=== PATIENT | male | born 1990 | race Caucasian/White ===

== ENCOUNTER 2017-08-20 00:30 | Emergency (ER) | payer BC ==
[2017-08-20] MEDS ORDERED: CEFTRIAXONE/SWI 1gm 1 GM/10 ML SYR ONE (00:51)
[2017-08-20] MEDS ORDERED: NA CHLORIDE 0.9% 1,000 ML ONE (00:51)
[2017-08-20] MEDS ORDERED: AZITHROMYCIN 250 MG TAB ONE (00:52)
[2017-08-20 01:29] LABS: Absolute Lymphocytes (CBC) 1.6 K/uL (0.7-4.9); Absolute Monocytes 1.3 K/uL (0.1-1.3); Absolute Neutrophil 12.1 K/uL (1.8-8.0); Basophils % 0.3 % (0-1.3); Eosinophils % 2.3 % (0-4.4); Hematocrit 43.7 % (39.6-49.0); Lymphocytes % 10.3 % (15.3-44.8); MCV 84.3 fL (80-100); MPV 8.9 fL (7.6-11.3); Monocytes % 8.3 % (3.3-12.3); RBC Red Blood Cell Count 5.18 M/uL (4.33-5.43)
[2017-08-20 01:47] LABS: Bicarbonate 28 mEq/L (21-31); Glucose Level 110 mg/dL (65-120); Potassium 3.8 mEq/L (3.6-5.0); Sodium Level 138 mEq/L (135-145)
[2017-08-20 01:51] LABS: CKMB Creatine Kinase MB 1.2 ng/ml (0.3-4.0)
[2017-08-20 01:53] LABS: ALT/SGPT 31 IU/L (10-60); AST/SGOT 24 IU/L (10-42); Albumin 4.1 g/dL (3.2-5.5); Alkaline Phosphatase 65 IU/L (42-121); BUN Blood Urea Nitrogen 13 mg/dL (6-20); Bilirubin Direct 0.1 mg/dL (0-0.2); Bilirubin Total 0.8 mg/dL (0.3-1.2); Creatine Phosphokinase 96 IU/L (22-269); Magnesium 1.8 mg/dL (1.8-2.5); Protein, Total 7.7 g/dL (6.0-8.3)
--- NOTE | 2017-08-20 02:14 | ER ---
Nurse's Notes [facility] Name: Josesito Lopez Age: 27 yrs Sex: Male : 1990 Arrival Date: 08/20/2017 Time: 00:30 Bed 6 Private MD: Diagnosis: Pneumonia due to other specified bacteria Presentation: 08/20 00:39 Presenting complaint: Patient states: I've had chest congestion symptoms since Monday tl2 and it's gotten worse. It feels like my lungs are heavy and it's just a burning pain all the time. I feel short of breath even at rest. Transition of care: patient was not received from another setting of care. Onset of symptoms was August 15, 2017. Initial Sepsis Screen: Does the patient meet any 2 criteria? HR > 90 bpm. No. Patient's initial sepsis screen is negative. Does the patient have a suspected source of infection? No. Patient's initial sepsis screen is negative. Care prior to arrival: None. 00:39 Method Of Arrival: Ambulatory tl2 00:39 Acuity: KEVIN 3 tl2 Triage Assessment: 00:42 General: Appears in no apparent distress. uncomfortable, Behavior is calm, cooperative, tl2 appropriate for age. Pain: Complains of pain in chest wall Pain does not radiate. Pain currently is 4 out of 10 on a pain scale. Quality of pain is described as dull. Neuro: Level of Consciousness is awake, alert, obeys commands, Oriented to person, place, time, situation. Cardiovascular: Chest pain is described as mild, quality is burning, is located in chest wall. Respiratory: Airway is patent Respiratory effort is even, unlabored, Respiratory pattern is regular, symmetrical. GI: No signs and/or symptoms were reported involving the gastrointestinal system. : No signs and/or symptoms were reported regarding the genitourinary system. Derm: Skin is pink, warm \T\ dry. Historical: - Allergies: 00:42 No Known Allergies; tl2 - Home Meds: 00:42 phentermine oral oral [Active]; tl2 - PMHx: 00:42 None; tl2 - PSHx: 00:42 None; tl2 - Immunization history:: Adult Immunizations up to date. - Social history:: Smoking status: Patient uses tobacco products, smokes one pack cigarettes per day. Patient/guardian denies using alcohol, street drugs, The patient lives with family. - Family history:: not pertinent. Screenin:48 Abuse screen: Denies threats or abuse. Nutritional screening: No deficits noted. tl2 Tuberculosis screening: No symptoms or risk factors identified. Fall Risk None identified. Assessment: 01:21 General: see triage assessment. tl2 01:22 Reassessment: Patient appears in no apparent distress at this time. No changes from tl2 previously documented assessment. Patient and/or family updated on plan of care and expected duration. Pain level reassessed. Patient is alert, oriented x 3, equal unlabored respirations, skin warm/dry/pink. 02:13 Reassessment: Patient appears in no apparent distress at this time. Patient and/or tl2 family updated on plan of care and expected duration. Pain level reassessed. Patient is alert, oriented x 3, equal unlabored respirations, skin warm/dry/pink. Awaiting further orders. 02:44 Pain: Pain began 2 hours ago. tl2 02:45 Reassessment:. tl2 02:45 Reassessment: DC Instructions given to patient. Patient understand the POC and to ao follow up with PCP. Patient agrees with antibiotic regime. Vital Signs: 00:42 BP 152 / 93; Pulse 109; Resp 20; Temp 99.3(O); Pulse Ox 98% on R/A; Weight 117.93 kg; tl2 Height 5 ft. 8 in. (172.72 cm); Pain 4/10; 01:22 BP 122 / 62; Pulse 77; Resp 18; Pulse Ox 96% on R/A; tl2 02:13 BP 139 / 73; Pulse 82; Resp 18; Pulse Ox 93% on R/A; tl2 02:46 BP 125 / 80; Pulse 78; Resp 18; Pulse Ox 96% on R/A; ao 00:42 Body Mass Index 39.53 (117.93 kg, 172.72 cm) tl2 ED Course: 00:30 Patient arrived in ED. ds1 00:39 Jamarcus Boss MD is Attending Physician. ma2 00:39 Liz Mcfarlane RN is Primary Nurse. tl2 00:41 Triage completed. tl2 00:42 Arm band placed on left wrist. EKG completed in triage. Results shown to MD. tl2 00:48 Patient has correct armband on for positive identification. Bed in low position. Call tl2 light in reach. Side rails up X 1. Adult w/ patient. conveyor monitor on. Pulse ox on. NIBP on. 00:48 Patient maintains SpO2 saturation greater than 95% on room air. tl2 00:50 Inserted saline lock: 20 gauge in right antecubital area, using aseptic technique. eb Blood collected. 01:01 X-ray completed. Portable x-ray completed in exam room. Patient tolerated procedure 1 well. 01:03 XRAY Chest (1 view) In Process Unspecified. EDMS 02:44 No provider procedures requiring assistance completed. IV discontinued, intact, tl2 bleeding controlled, No redness/swelling at site. Pressure dressing applied. Administered Medications: 00:56 Drug: NS 0.9% 1000 ml Route: IV; Rate: 1 bolus; Site: right antecubital; tl2 00:56 Drug: Rocephin 1 grams Route: IV; Rate: bolus; Site: right antecubital; tl2 00:56 Drug: AZITHromycin 500 mg Route: PO; tl2 Outcome: 02:14 Discharge ordered by . ma2 02:44 Discharged to home ambulatory. tl2 02:44 Condition: stable 02:44 Discharge instructions given to patient, Instructed on discharge instructions, follow up and referral plans. Demonstrated understanding of instructions, follow-up care, medications, Prescriptions given X 3. 02:47 Patient left the ED. ao 11:58 Instructed on attempted to call pt at home, no answer, left voice mail. Radiologist radha requests pt be seen in ER for CT of chest Signatures: Dispatcher [employer] EDIA Darshana López 1 Kimberly Coleman 1 Zahira Liz, JOS ARGUELLO iw Coleman Almendarez RN RN ao Knox, Taylor, RN RN tl2 Jamarcus Boss MD MD ma2 Botello, Elizabeth eb
--- NOTE | 2017-08-20 02:14 | EDPHYS ---
Physician Documentation [facility] Name: Josesito Lopez Age: 27 yrs Sex: Male : 1990 Arrival Date: 08/20/2017 Time: 00:30 Bed 6 Private MD: ED Physician Jamarcus Boss HPI: 08/20 00:45 This 27 yrs old Male presents to ER via Ambulatory with complaints of Chest ma2 Pain, Shortness Of Breath, Congestion. 00:45 The patient or guardian reports chest pain that is located primarily in the right sided ma2 constant x 2 days worse with deep breath and cough. Severity of pain: At its worst the pain was moderate. The patient has not experienced similar symptoms in the past. Historical: - Allergies: 00:42 No Known Allergies; tl2 - Home Meds: 00:42 phentermine oral oral [Active]; tl2 - PMHx: 00:42 None; tl2 - PSHx: 00:42 None; tl2 - Immunization history:: Adult Immunizations up to date. - Social history:: Smoking status: Patient uses tobacco products, smokes one pack cigarettes per day. Patient/guardian denies using alcohol, street drugs, The patient lives with family. - Family history:: not pertinent. ROS: 00:45 Respiratory: Positive for cough. ma2 00:45 All other systems are negative. 02:14 Eyes: Negative for injury, pain, redness, and discharge. ma2 Exam: 00:45 Constitutional: This is a well developed, well nourished patient who is awake, alert, ma2 and in no acute distress. Head/Face: Normocephalic, atraumatic. Chest/axilla: Normal chest wall appearance and motion. Nontender with no deformity. No lesions are appreciated. Cardiovascular: Regular rate and rhythm with a normal S1 and S2. No gallops, murmurs, or rubs. Normal PMI, no JVD. No pulse deficits. Respiratory: Lungs have equal breath sounds bilaterally, clear to auscultation and percussion. No rales, rhonchi or wheezes noted. No increased work of breathing, no retractions or nasal flaring. Abdomen/GI: Soft, non-tender, with normal bowel sounds. No distension or tympany. No guarding or rebound. No evidence of tenderness throughout. Vital Signs: 00:42 BP 152 / 93; Pulse 109; Resp 20; Temp 99.3(O); Pulse Ox 98% on R/A; Weight 117.93 kg; tl2 Height 5 ft. 8 in. (172.72 cm); Pain 4/10; 01:22 BP 122 / 62; Pulse 77; Resp 18; Pulse Ox 96% on R/A; tl2 02:13 BP 139 / 73; Pulse 82; Resp 18; Pulse Ox 93% on R/A; tl2 02:46 BP 125 / 80; Pulse 78; Resp 18; Pulse Ox 96% on R/A; ao 00:42 Body Mass Index 39.53 (117.93 kg, 172.72 cm) tl2 MDM: 00:39 Patient medically screened. ma2 00:45 Differential diagnosis: anxiety, chest wall pain, gastroesophageal reflux disease ma2 (GERD), pleurisy, pneumonia, pneumothorax. 02:12 HEART Score: History: Slightly Suspicious (0), ECG: Normal (0), Age: < or = 45 years ma2 (0), Risk Factors: No Risk Factors Known (0), Troponin: < or = 1 x Normal Limit (0). The patient's pulmonary embolism risk score was calculated as follows: No Risks (0 Pts). ZULAY Risk Score: not applicable. Data reviewed: vital signs, nurses notes, half-way records, lab test result(s), EKG, radiologic studies. Counseling: I had a detailed discussion with the patient and/or guardian regarding: the historical points, exam findings, and any diagnostic results supporting the discharge/admit diagnosis, the presence of at least one elevated blood pressure reading (>120/80) during this emergency department visit. 17:00 Special discussion: addendum: radiologist called at noon on 08/21/17 with CXR wa discrepancy. States pt may need further eval due to widened mediastinum. attempted call to pt by Charge nurse Zahira. phone number for pt incorrect. will have ED director mail letter - Dr. Rajput. 08/20 00:44 Order name: Basic Metabolic Panel; Complete Time: 02:11 ma2 08/20 00:44 Order name: BNP; Complete Time: 02:11 mt2 08/20 00:44 Order name: CBC with Diff; Complete Time: 01:36 08/20 00:44 Order name: Ckmb; Complete Time: 02:11 mt08/20 00:44 Order name: CPK; Complete Time: 02:11 mt08/20 00:44 Order name: LFT's; Complete Time: 02:11 mt08/20 00:44 Order name: Magnesium; Complete Time: 02:11 mt08/20 00:44 Order name: PT-INR 08/20 00:44 Order name: Ptt, Activated 08/20 00:44 Order name: Troponin (emerg Dept Use Only); Complete Time: 02:11 mt08/20 00:44 Order name: XRAY Chest (1 view) 08/20 00:44 Order name: EKG; Complete Time: 00:47 08/20 00:44 Order name: Cardiac monitoring; Complete Time: 00:56 mt08/20 00:44 Order name: EKG - Nurse/Tech; Complete Time: 00:49 mt08/20 00:44 Order name: IV Saline Lock; Complete Time: 00:56 08/20 00:44 Order name: Labs collected and sent; Complete Time: 00:56 08/20 00:44 Order name: O2 Per Protocol; Complete Time: 00:56 08/20 00:44 Order name: O2 Sat Monitoring; Complete Time: 00:57 ma2 Administered Medications: 00:56 Drug: NS 0.9% 1000 ml Route: IV; Rate: 1 bolus; Site: right antecubital; tl2 00:56 Drug: Rocephin 1 grams Route: IV; Rate: bolus; Site: right antecubital; tl2 00:56 Drug: AZITHromycin 500 mg Route: PO; tl2 Disposition: 08/20/17 02:14 Discharged to Home. Impression: Pneumonia due to other specified bacteria. - Condition is Stable. - Discharge Instructions: Pneumonia, Adult. - Prescriptions for Tylenol- Codeine #3 300-30 mg Oral Tablet - take 2 tablet by ORAL route every 6 hours As needed; 30 tablet. Zithromax Z- Pavan 250 mg Oral Tablet - take 1 tablet by ORAL route as directed for 5 days Day 1 - take two (2) tablets one time. Day 2, 3, 4 , 5 take one (1) tablet once daily.; 6 tablet. Albuterol Sulfate 90 mcg/actuation - inhale 1-2 puff by INHALATION route every 4-6 hours; 1 Inhaler. - Medication Reconciliation Form, Thank You Letter, Antibiotic Education, Prescription Opioid Use form. - Follow up: Private Physician; When: Tomorrow; Reason: Continuance of care. - Problem is new. - Symptoms have improved. Signatures: Dispatcher [employer] EDAR Coleman Almendarez RN RN ao Knox, Taylor, RN RN tl2 Edmar Rajput MD MD wa Alzahri, Mohammad, MD MD ma2 Corrections: (The following items were deleted from the chart) 02:15 00:44 Urine Dipstick-Ancillary ordered. ma2 tl2 02:47 02:14 08/20/2017 02:14 Discharged to Home. Impression: Pneumonia due to other specified ao bacteria. Condition is Stable. Forms are Medication Reconciliation Form, Thank You Letter, Antibiotic Education, Prescription Opioid Use. Follow up: Private Physician; When: Tomorrow; Reason: Continuance of care. Problem is new. Symptoms have improved. ma2
[2017-08-20 02:46] LABS: Protime INR 1.2
--- NOTE | 2017-08-20 12:03 | RAD REPORT ---
EXAM DESCRIPTION: RAD - Chest Single View - 08/20/2017 1:08 am CLINICAL HISTORY: Chest pain, congestion. COMPARISON: 11/20/2009 FINDINGS: Portable technique limits examination quality. The lungs are grossly clear. The upper mediastinum appears prominent, a notable change relative to pr ior study. The heart is normal in size to mildly prominent.CT chest is recommended. Findings were discussed with Dr. Rajput in the ER 11:50 a.m. 08/20/2017 by telephone.
--- NOTE | 2017-08-20 15:23 | EKG ---
Test Date: 2017-08-20 Test Time: 00:43:49 Construction Laborer: GABRIEL MEASUREMENT RESULTS: Intervals: Rate: 94 OR: 150 QRSD: 84 QT: 314 QTc: 392 Carter: P: 50 OR: 150 QRS: 56 T: 38 INTERPRETIVE STATEMENTS: Normal sinus rhythm Normal ECG No previous ECG available for comparison Electronically Signed On 08-20-17 15:23:18 CDT by Dustin Goldberg
== END 2017-08-20 02:47 | disposition home or self-care (01) ==
LOC: ER 00:30
DX: J15.8 Pneumonia due to other specified bacteria (principal); F17.210 Nicotine dependence, cigarettes, uncomplicated
CPT/HCPCS: 36415; 71045; 80048; 80076; 82550; 82553; 83735; 83880; 84484; 85025; 85610; 85730; 93005; 96374; 99285; J0696; J7030

== ENCOUNTER 2021-10-31 14:44 | Emergency (ER) | payer SELFPAY ==
--- OUTSIDE RECORDS SUMMARY | 2021-10-31 14:47 | XMS REPORT | Continuity of Care Document ---
:1990 Author Organization [facility] Address [address] [place] [address] [address]. [address] [place] [address] Care Team Providers Name Role Phone Lab, Fam Pob I Attending Clinician Unavailable Evelyn FERNANDO Attending Clinician Payers Payer Name Policy Type Policy Number Effective Date Expiration Date S jazmin [facility] [id number] 2017 00:00:00 Problems This patient has no known problems. Allergies, Adverse Reactions, Alerts Allergy Allergy Status Severity Reaction(s) Onset Inactive Treating Comm ents Source Name Type Date Date Clinician NO KNOWN Drug Active [facility] Social History Social Habit Start Date Stop Date Quantity Comments Source Exposure to SARS-CoV-2 Yes Un [facility] (event) [facility] Sex Assigned At [facility] Smoking Status Start Date Stop Date Source Unknown if ever smoked [facility] Medications Ordered Filled Start Stop Current Ordering Indication Dosage Frequency Signature Comments Components Source Medication Medication Date Date Medication? Clinician (SIG) Name Name methylPREDN 2017-04 Yes [id number] Take by Univers ISolone 1-08 mouth ity of (MEDROL, 00:00: SEE-INSTRU Gerard as WIL,) 4 mg 00 CTIONS. Medica l tablets follow Branch package directions methylPREDN 2017-04 Yes [id number] Take by Univers ISolone 1-08 mouth ity of (MEDROL, 00:00: SEE-INSTRU Gerard as WIL,) 4 mg 00 CTIONS. Medica l tablets follow Branch package directions sulfamethox 2018- Yes 1{tbl} Take 1 Un riley azole-trime 1-31 tablet by ity of thoprim 00:00: mouth [place] 800-160 mg 00 every 12 Medic al per tablet (twelve) Branc h hours. mupirocin Yes Apply to Uni vers (BACTROBAN) 1-31 area(s) 3 ity of 2 % 00:00: (three) [place] ointment 00 times Medical daily. Branch sulfamethox Yes 1{tbl} Take 1 Un riley azole-trime 1- tablet by ity of thoprim 00:00: mouth [place] 800-160 mg 00 every 12 Medic al per tablet (twelve) Branc h hours. mupirocin 2017- Yes Apply to Uni vers (BACTROBAN) - area(s) 3 ity of 2 % 00:00: (three) [place] ointment 00 times Medical daily. Branch Procedures This patient has no known procedures. Encounters Start End Encounter Admission Attending Care Care Encounter Source Date/Time Date/Time Type Type Clinicians Facility Department ID 2019-02-06 Inpatient U [facility] MED [id number] 10:01:00 2020-01-23 2020-01-23 Laboratory Lab, [facility] Pob I [facility] 1.2. [id number] Univers 09:38:43 09:58:43 Only [employer] [id number] ity of [place] [id number] Gerard as Professio [phone] Nv dical nal [address] [place] [address] [facility] 2020-01-23 2020-01-23 Outpatient [facility] [id number] Univers 09:40:00 09:40:00 [id number] ity of [facility] [place] [facility] 2020-01-23 2020-01-23 Outpatient R [facility] [id number] Univers 09:40:00 09:40:00 ity of [facility] [place] [facility] 2019-11-18 2019-11-18 Laboratory Lab, [facility] Pob I [facility] 1.2. [id number] Univers 09:00:12 09:20:12 Only Evelyn [employer] [id number] ity of [place] [id number] Gerard as Professio [phone] Nv dical nal [address] [place] [address] [facility] 2019-11-18 2019-11-18 Outpatient R [facility] [id number] Univers 08:40:00 08:40:00 ity [facility] 2019-11-18 2019-11-18 Outpatient R [facility] [id number] Univers 08:40[facility]00 [facility]40[facility] This patient has no known results.
[2021-10-31 15:44] LABS: Absolute Lymphocytes (CBC) 1.5 K/uL (0.7-4.9); Hematocrit 43.9 % (39.6-49.0); Lymphocytes % 11.6 % (15.3-44.8); MCV 83.2 fL (80-100); MPV 7.9 fL (7.6-11.3); RBC Red Blood Cell Count 5.27 M/uL (4.33-5.43)
[2021-10-31 15:46] LABS: Protime INR 1.12
[2021-10-31 16:00] LABS: ALT/SGPT 31 U/L (12-78); AST/SGOT 18 U/L (15-37); Albumin 3.5 g/dL (3.4-5.0); Alkaline Phosphatase 87 U/L (45-117); BUN Blood Urea Nitrogen 14 mg/dL (7-18); Bicarbonate 27 mmol/L (21-32); Bilirubin Total 0.4 mg/dL (0.2-1.0); Glomerular Filtration Rate 104 ml/min (=/>90); Glucose Level 131 mg/dL (74-106); Magnesium 1.9 mg/dL (1.8-2.4); NT PRO-BNP 49 pg/mL (<125); Potassium 4.1 mmol/L (3.5-5.1); Protein, Total 7.4 g/dL (6.4-8.2); Sodium Level 138 mmol/L (136-145); Troponin High Sensitivity 7.1 pg/mL (<58.9)
[2021-10-31 16:02] LABS: Bilirubin Direct < 0.1 mg/dL (0-0.2)
--- NOTE | 2021-10-31 16:07 | RAD REPORT ---
EXAM DESCRIPTION: RAD - Chest Single View - 10/31/2021 3:54 pm CLINICAL HISTORY: PALPITATIONS COMPARISON: Chest Single View dated 08/20/2017; CHEST PA AND LAT 2 VIEW dated 11/20/2009 FINDINGS: Lines: None. Lungs: No evidence of edema or pneumonia. Pleural: No significant pleural effusions or pneumothorax. Cardiac: Mild cardiomegaly. Bones: No acute fractures. Other: Increased wide mediastinum. IMPRESSION: Increased widening of the mediastinum could be secondary to aortic aneurysm/dissection. Recommend further evluation with CTA of the aorta. Discussed with Juanjo Klein by Dr. Garcia at 5120 on .
[2021-10-31] MEDS ORDERED: METOPROLOL TAR 25 MG TAB ONE (16:08)
[2021-10-31] MEDS ORDERED: ASPIRIN 81 MG CHEWABLE TABLET ONE (16:08)
--- NOTE | 2021-10-31 16:33 | RAD REPORT ---
EXAM DESCRIPTION: CTAngio Aorta For Dissection - 10/31/2021 4:23 pm CLINICAL HISTORY: wide mediastinum COMPARISON: No comparisons TECHNIQUE: CT of the chest, abdomen, and pelvis was performed using a CTA protocol to evaluate the a bg. MIPS were performed. All CT scans are performed using dose optimization technique as appropriate and may include automated exposure control or mA/KV adjustment according to patient size. FINDINGS: Thorax: Chest Wall: No abnormal mass Lungs: No acute abnormality. Pleura: No effusions or pneumothorax. Christin/Mediastinum: Markedly dilated esophagus containing fluid and particulate matter. An air-fluid le vels present. The esophageal wall is diffusely thickened. The esophagus is dilated up to the thoracic inlet Aorta/Pulmonary Arteries: Unremarkable Heart: Normal size. Abdomen/Pelvis: Liver: No acute abnormality or suspicious lesions. Biliary: No biliary ductal dilatation. Stomach: No significant focal abnormality. Duodenum: No significant focal abnormality. Pancreas: No significant abnormality. Spleen: No significant abnormality. Adrenal: No suspicious lesions. Kidney/ureter: No hydronephrosis. No renal calculi. Retroperitoneum: No retroperitoneal adenopathy. Vascular: No aneurysm. Bowel: No significant focal abnormality. Peritoneum: No ascites or free air. Bladder: Grossly unremarkable. Reproductive: No adnexal masses. Bones: No acute fracture. Other: n/a IMPRESSION: The widened mediastinum correlates with a massively dilated esophagus that may be second aida to achalasia. No obstructed mass identified. Recommend gastroenterology referral or consultation. No aortic aneurysm or dissection.
[2021-10-31 17:23] LABS: SARS-CoV-2 Antigen Rapid Res Negative (Negative)
[2021-10-31 17:48] LABS: Urine Blood Negative (Negative); Urine Glucose Negative (Negative); Urine Protein 2+ (Negative); Urine pH 6.5 (5.0-7.0)
--- NOTE | 2021-10-31 18:47 | ER ---
Nurse's Notes [facility] Name: Josesito Lopez Age: 31 yrs Sex: Male : 1990 Arrival Date: 10/31/2021 Time: 14:46 Bed 16 Private MD: Diagnosis: Achalasia of cardia;Palpitations Presentation: 10/31 15:13 Chief complaint: Patient states: Over the past two weeks I have been feeling SOB, and ld1 swelling to both legs. Pt reports new onset of resting heart rate being elevated. Coronavirus screen: At this time, the client does not indicate any symptoms associated with coronavirus-19. Ebola Screen: No symptoms or risks identified at this time. Initial Sepsis Screen: Does the patient meet any 2 criteria? No. Patient's initial sepsis screen is negative. Does the patient have a suspected source of infection? No. Patient's initial sepsis screen is negative. Risk Assessment: Do you want to hurt yourself or someone else? Patient reports no desire to harm self or others. Onset of symptoms was October 31, 2021 at 15:15. 15:13 Method Of Arrival: Ambulatory ld1 15:13 Acuity: KEVIN 3 ld1 Triage Assessment: 15:15 General: Appears in no apparent distress. comfortable, Behavior is calm, cooperative, ld1 appropriate for age. Pain: Denies pain. EENT: No signs and/or symptoms were reported regarding the EENT system. Neuro: Level of Consciousness is awake, alert, obeys commands, Oriented to person, place, time, situation. Cardiovascular: Capillary refill < 3 seconds Patient's skin is warm and dry. Rhythm is sinus rhythm. Respiratory: Airway is patent Respiratory effort is even, unlabored. GI: Abdomen is non-distended, obese. : No signs and/or symptoms were reported regarding the genitourinary system. Derm: No signs and/or symptoms reported regarding the dermatologic system. Musculoskeletal: No signs and/or symptoms reported regarding the musculoskeletal system. Historical: - Allergies: 15:15 No Known Allergies; ld1 - Home Meds: 15:15 None [Active]; ld1 - PMHx: 15:15 None; ld1 - PSHx: 15:15 None; ld1 - Immunization history:: Adult Immunizations up to date, Client reports receiving the 2nd dose of the Covid vaccine. - Social history:: Smoking status: Patient reports the use of cigarette tobacco products, smokes one-half pack cigarettes per day, Patient/guardian denies using alcohol. Screenin:17 Abuse screen: Denies threats or abuse. Denies injuries from another. Nutritional ld1 screening: No deficits noted. Tuberculosis screening: No symptoms or risk factors identified. Fall Risk None identified. Assessment: 15:17 Reassessment: See triage assessment. ld1 16:07 General: Appears in no apparent distress. comfortable, Behavior is calm, cooperative, ld1 appropriate for age. Pain: Denies pain. Neuro: Level of Consciousness is awake, alert, obeys commands, Oriented to person, place, time, situation. Cardiovascular: Capillary refill < 3 seconds Patient's skin is warm and dry. Rhythm is sinus rhythm. Vital Signs: 15:13 BP 164 / 69; Pulse 98; Resp 19; Temp 98.8(O); Pulse Ox 98% on R/A; Weight 154.22 kg; ld1 Height 5 ft. 8 in. (172.72 cm); Pain 0/10; 16:54 BP 132 / 73; Pulse 79; Resp 18; Pulse Ox 97% on R/A; ld1 17:43 BP 121 / 66; Pulse 76; Resp 25; Pulse Ox 98% on R/A; ld1 18:30 BP 123 / 63; Pulse 77; Resp 20; Pulse Ox 99% on R/A; ld1 15:13 Body Mass Index 51.70 (154.22 kg, 172.72 cm) ld1 ED Course: 14:46 Patient arrived in ED. mr 14:59 Stephani Aparicio, JOS is Primary Nurse. ld1 15:05 Juanjo Klein PA is PHCP. cp 15:05 Farheen Brown is Attending Physician. cp 15:15 Triage completed. ld1 15:15 Arm band placed on right wrist. ld1 15:17 Patient has correct armband on for positive identification. Placed in gown. Bed in low ld1 position. Call light in reach. Side rails up X2. manager medicaid on. Pulse ox on. NIBP on. Door closed. Noise minimized. 15:17 No provider procedures requiring assistance completed. ld1 15:36 Inserted saline lock: 20 gauge in left antecubital area, using aseptic technique. Blood mb7 collected. 15:37 Troponin HS Sent. mb7 15:37 CBC with Diff Sent. mb7 15:37 D-Dimer Sent. mb7 15:37 Basic Metabolic Panel Sent. mb7 15:37 LFT's Sent. mb7 15:37 Magnesium Sent. mb7 15:37 NT PRO-BNP Sent. mb7 15:37 PT-INR Sent. mb7 15:37 EKG done, by ED staff, reviewed by Juanjo KELLER. mb7 15:56 XRAY Chest (1 view) In Process Unspecified. EDMS 16:24 CT Aorta for Dissection In Process Unspecified. EDMS 17:07 SARS RAPID Sent. mb7 18:42 Edmar Delvalle MD is Referral Physician. cp 18:44 US Extremity Venous W Compression Vasquez In Process Unspecified. EDMS 19:06 IV discontinued, intact, bleeding controlled, No redness/swelling at site. ld1 Administered Medications: 16:06 Drug: Aspirin Chewable Tablet 324 mg Route: PO; ld1 16:06 Drug: Metoprolol 25 mg Route: PO; ld1 Medication: 15:17 VIS not applicable for this client. ld1 Outcome: 18:45 Discharge ordered by MD. cp 19:06 Discharged to home ambulatory, with family. ld1 19:06 Condition: stable 19:06 Discharge instructions given to patient, Instructed on discharge instructions, follow up and referral plans. Demonstrated understanding of instructions, follow-up care. 19:13 Patient left the ED. ld1 Signatures: Dispatcher [employer] [facility] Rom Ghislaine Juanjo Shelton PA PA cp Dibbern, Lauren RN RN ld1 Ghislaine Miller mb7
--- NOTE | 2021-10-31 18:47 | EDPHYS ---
Physician Documentation [facility] Name: Josesito Lopez Age: 31 yrs Sex: Male : 1990 Arrival Date: 10/31/2021 Time: 14:46 Bed 16 Private MD: ED Physician Farheen Brown HPI: 10/31 15:33 This 31 yrs old Male presents to ER via Ambulatory with complaints of Feet Swelling, cp Dizziness, Palpitations. 15:33 The patient presents with lightheadedness. Onset: The symptoms/episode began/occurred 2 cp week(s) ago. 15:33 The patient presents with a history of heart racing. cp 15:33 Context: The symptoms occur at rest. Duration: The patient or guardian reports multiple cp episodes, that are intermittent. Associated signs and symptoms: Pertinent positives: shortness of breath, dizziness, swelling of feet, Pertinent negatives: abdominal pain, chest pain, numbness, syncope. Historical: - Allergies: 15:15 No Known Allergies; ld1 - Home Meds: 15:15 None [Active]; ld1 - PMHx: 15:15 None; ld1 - PSHx: 15:15 None; ld1 - Immunization history:: Adult Immunizations up to date, Client reports receiving the 2nd dose of the Covid vaccine. - Social history:: Smoking status: Patient reports the use of cigarette tobacco products, smokes one-half pack cigarettes per day, Patient/guardian denies using alcohol. ROS: 15:35 Constitutional: Negative for body aches, chills, fever, poor PO intake. cp 15:35 Eyes: Negative for injury, pain, redness, and discharge. cp 15:35 Cardiovascular: Positive for edema, palpitations, Negative for chest pain. 15:35 Respiratory: Positive for shortness of breath, on exertion. Negative for cough, wheezing. Exam: 15:13 ECG was reviewed by the Attending Physician. cp 15:40 Constitutional: The patient appears in no acute distress, alert, awake, cp non-diaphoretic, non-toxic, well developed, well nourished, obese. 15:40 Head/Face: Normocephalic, atraumatic. cp 15:40 Eyes: Periorbital structures: appear normal, Conjunctiva: normal, no exudate, no cp injection, Sclera: no appreciated abnormality, Lids and lashes: appear normal, bilaterally. 15:40 ENT: External ear(s): are unremarkable, Nose: is normal, Mouth: Lips: moist, Oral cp mucosa: moist, Posterior pharynx: Airway: no evidence of obstruction, patent. 15:40 Neck: ROM/movement: is normal, is supple, without pain, no range of motions limitations. 15:40 Chest/axilla: Inspection: normal, Palpation: is normal, no crepitus, no tenderness. 15:40 Cardiovascular: Rate: normal, Rhythm: regular, Edema: ankle edema, that is very mild, JVD: is not appreciated. 15:40 Respiratory: the patient does not display signs of respiratory distress, Respirations: normal, no use of accessory muscles, no retractions, labored breathing, is not present, Breath sounds: are clear throughout, no decreased breath sounds, no stridor, no wheezing. 15:40 Abdomen/GI: Inspection: obese Bowel sounds: active, all quadrants, Palpation: abdomen is soft and non-tender, in all quadrants. 15:40 Back: pain, is absent, ROM is normal. 15:40 Neuro: Orientation: to person, place \T\ time. Mentation: is normal, Motor: moves all fours, strength is normal, Sensation: is normal, Gait: is steady, at a normal pace, without difficulty. Vital Signs: 15:13 BP 164 / 69; Pulse 98; Resp 19; Temp 98.8(O); Pulse Ox 98% on R/A; Weight 154.22 kg; ld1 Height 5 ft. 8 in. (172.72 cm); Pain 0/10; 16:54 BP 132 / 73; Pulse 79; Resp 18; Pulse Ox 97% on R/A; ld1 17:43 BP 121 / 66; Pulse 76; Resp 25; Pulse Ox 98% on R/A; ld1 18:30 BP 123 / 63; Pulse 77; Resp 20; Pulse Ox 99% on R/A; ld1 15:13 Body Mass Index 51.70 (154.22 kg, 172.72 cm) ld1 MDM: 15:09 Patient medically screened. 18:45 Data reviewed: vital signs, nurses notes, lab test result(s), EKG, radiologic studies, cp CT scan, plain films, ultrasound. 18:45 Test interpretation: by ED physician or midlevel provider: ECG, plain radiologic cp studies. 18:45 Counseling: I had a detailed discussion with the patient and/or guardian regarding: the cp historical points, exam findings, and any diagnostic results supporting the discharge/admit diagnosis, lab results, radiology results, the need for outpatient follow up, for definitive care, a tapper balance wheel screw hole, to return to the emergency department if symptoms worsen or persist or if there are any questions or concerns that arise at home. Response to treatment: the patient's symptoms have mildly improved after treatment, and as a result, I will discharge patient. 10/31 15:29 Order name: Basic Metabolic Panel; Complete Time: 16:45 cp 10/31 16:45 Interpretation: Normal except: GLUC 131. cp 10/31 15:29 Order name: CBC with Diff; Complete Time: 16:02 cp 10/31 16:02 Interpretation: Normal except: WBC 13.2; MIKA% 80.5; LYM% 11.6; NEUT A 10.6. cp 10/31 15:29 Order name: D-Dimer; Complete Time: 16:02 cp 10/31 15:29 Order name: LFT's; Complete Time: 16:45 cp 10/31 16:45 Interpretation: Normal except: GLOB 3.9; A/G 0.9. cp 10/31 15:29 Order name: Magnesium; Complete Time: 16:45 cp 10/31 15:29 Order name: NT PRO-BNP; Complete Time: 16:45 cp 10/31 15:29 Order name: PT-INR; Complete Time: 16:02 cp 10/31 15:29 Order name: Troponin HS; Complete Time: 16:45 cp 10/31 15:29 Order name: XRAY Chest (1 view); Complete Time: 16:45 cp 10/31 16:02 Order name: CT Aorta for Dissection; Complete Time: 16:45 cp 10/31 17:08 Interpretation: Report reviewed. 10/31 16:05 Order name: SARS RAPID; Complete Time: 17:33 eb 10/31 17:49 Order name: Urine Dipstick-Ancillary; Complete Time: 17:57 EDMS 10/31 18:00 Order name: US Extremity Venous W Compression Vasquez cp 10/31 15:29 Order name: EKG; Complete Time: 15:30 cp 10/31 15:29 Order name: Cardiac monitoring; Complete Time: 15:37 cp 10/31 15:29 Order name: EKG - Nurse/Tech; Complete Time: 15:37 cp 10/31 15:29 Order name: IV Saline Lock; Complete Time: 15:37 cp 10/31 15:29 Order name: Labs collected and sent; Complete Time: 15:37 cp 10/31 15:29 Order name: O2 Per Protocol; Complete Time: 15:37 cp 10/31 15:29 Order name: O2 Sat Monitoring; Complete Time: 15:37 cp 10/31 17:44 Order name: Urine Dipstick-Ancillary (obtain specimen); Complete Time: 17:48 ld1 EC:13 Rate is 82 beats/min. Rhythm is regular. NC interval is normal. QRS interval is normal. cp QT interval is normal. T waves are Inverted in lead aVR. Interpreted by me. Reviewed by me. Administered Medications: 16:06 Drug: Aspirin Chewable Tablet 324 mg Route: PO; ld1 16:06 Drug: Metoprolol 25 mg Route: PO; ld1 Disposition Summary: 10/31/21 18:45 Discharge Ordered Location: Home cp Problem: chronic cp Symptoms: are unchanged cp Condition: Stable cp Diagnosis - Achalasia of cardia cp - Palpitations cp Followup: cp - With: Edmar Delvalle MD - When: 2 - 3 days - Reason: achalasia Discharge Instructions: - Discharge Summary Sheet cp - Palpitations cp - Achalasia cp - Ambulatory Cardiac Monitoring cp Forms: - Medication Reconciliation Form cp - Thank You Letter cp - Antibiotic Education cp - Prescription Opioid Use cp - Work release form ld1 - Family Work Release ld1 Signatures: Dispatcher [employer] EDJuanjo Almaguer PA PA cp Stephani Aparicio, RN RN ld1
--- NOTE | 2021-10-31 18:50 | RAD REPORT ---
EXAM DESCRIPTION: US - Extrem Venous W Compress Vasquez - 10/31/2021 6:42 pm CLINICAL HISTORY: SWELLING COMPARISON: No comparisons TECHNIQUE: Real-time sonographic evaluation of the lower extremity deep venous systems was performed using color Doppler, grayscale, and compression. FINDINGS: Bilateral lower extremities. Normal compressibility, flow augmentation, phasic flow and spontaneous flow is identified in both the left and right lower extremity deep venous systems. No intraluminal filling defects seen. IMPRESSION: No DVT in either lower extremity.
[2021-10-31 19:25] VITALS: TEMP 98.8
[2021-10-31 19:31] VITALS: BP 123/63; O2SAT 99
--- NOTE | 2021-11-01 09:27 | EKG ---
Test Date: 2021-10-31 Test Time: 15:08:39 Pharmaceutical Scientist: MADHU MEASUREMENT RESULTS: Intervals: Rate: 82 IN: 172 QRSD: 86 QT: 332 QTc: 387 [place]: P: 41 IN: 172 QRS: 35 T: 30 INTERPRETIVE STATEMENTS: Normal sinus rhythm with sinus arrhythmia Normal ECG Compared to ECG 08/20/2017 00:43:49 No significant changes Electronically Signed On 11-01-21 09:24:49 CDT by Dustin Goldberg
== END 2021-10-31 19:13 | disposition home or self-care (01) ==
LOC: ER 14:44
DX: R00.2 Palpitations (principal); K22.0 Achalasia of cardia; F17.210 Nicotine dependence, cigarettes, uncomplicated; Z20.822 Contact with and (suspected) exposure to COVID-19
CPT/HCPCS: 36415; 71045; 71275; 74175; 80048; 80076; 81003; 83735; 83880; 84484; 85025; 85379; 85610; 87811; 93005; 93970; 99284; Q9967

== ENCOUNTER 2025-01-24 00:34 | Emergency (ER) | payer BC ==
--- OUTSIDE RECORDS SUMMARY | 2025-01-24 00:39 | XMS REPORT | Continuity of Care Document ---
Author Name Unknown Address [address] [facility] [place] [address] Organization [facility] Address [address] [facility] [address] [place] [address] Care Team Providers Care Telecommunication Tower Technician Name Role Phone FRAN GHAZAL Primary Care Physician UnavailGlenn Rico Attending Clinician Unavailable TORSTEN SEO Attending Clinician Unavailable EbTorsten Garcia Attending Clinician [phone] Unknown, Attending Attending Clinician UnavailMeredith Desai Fam Pob I Attending Clinician UnavailLiza Gonzalez Attending Clinician [phone] Doctor Unassigned, [place] Attending Clinician U navailable Payers Payer Name Policy Type Policy Number Effective Date Expirati on Date Source [facility] [id number] 2017 00:00:00 Problems Condition Name Condition Details Condition Category Status Onset Date Resolution Date Last Treatment Date Treating Clinician Comments Source HEMATEMESI S HEMATEMESI S Active [facility] [place] Diagnosis Active 2018-04 00:00: 00 2019-04-08 22:19:00 Rikki Talamantes HEMOPTYSIS HEMOPTYSIS Active 02/04/2019 [facility] [place] Diagnosis Active 2018-04 00:00: 00 2019-02-06 07:57:00 Rikki Talamantes [id number] History of pneumonia Problem [facility] Allergies, Adverse Reactions, Alerts Allergy Name Allergy Type Status Severity Reaction(s) Onset Date Inactive Date Treating Clinician Comments Source NO KNOWN ALLERGIE S Drug Class Active [facility] No Known Medicati on Allergie s No Known Medicati on Allergie s Active Rikki Talamantes Social History Social Habit Start Date Stop Date Quantity Comments Source [facility] of [facility] Use Current Smoker [facility] Sex Assigned At [facility] Exposure to SARS-CoV-2 (event) 2019-12-24 00:00:00 2020-01-23 09:54:00 Yes [facility] Social History 2019-02-04 20:50:37 2019-02-04 20:50:37 Fiona Talamantes History of Social function 2018-10-18 00:00:00 2018-10-18 00:00:00 [facility] Smoking Status Start Date Stop Date Source Tobacco smoking consumption unknown [facility] Current Smoker 2023-01-27 00:00:00 [facility] Medications Ordered Medication Name Filled Medication Name Start Date Stop Date Current Medication? Ordering Clinician Indication Dosage Frequency Signature (SIG) Comments Components Source promethazin e-dextromet horphan 6.25-15 mg/5 mL syrup 09-30 00:00: 00 10-11 04:59 :00 No [id number] 10mL Take 10 mL by mouth 4 (four) times daily for 10 days. [facility] predniSONE 20 mg tablet 09-30 00:00: 00 10-06 04:59 :00 No [id number] 40mg Take 2 tablets by mouth in the morning for 5 days. [facility] Augmentin 500-125 MG Augmentin 500-125 MG 2022-04 00:00: 00 No 1{table t} BID Augmentin 500-125 MG Augmentin 500-125 MG Augmentin 500-125 MG 2022-04 00:00: 00 No 1{table t} BID Augmentin 500-125 MG Augmentin 500-125 MG Augmentin 500-125 MG 2022-04 0 00:00: 00 No 1{table t} BID Augmentin 500-125 MG Amoxicillin 875 MG / Clavulanate 125 MG Oral Tablet [Augmentin 875-mg] 2018-04 21:54: 00 Yes 875 mg = 1 tab, PO, Q12H, X 5 day, # 10 tab, 0 Refill(s) Rikki Talamantes Rocephin + sterile water 10 mL 2018-04 01:00: 00 No Notes: (Same As: Rocephin). 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 Rikki Talamantes Thiamine 2018-04 14:00: 00 No Notes: (Same As: Vitamin B1) Rikki Talamantes Chlordiazep oxide 2018-04 05:00: 00 No 50 mg, 2 cap, Route: PO, Drug form: CAP, Q6H, Dosing Weight 135.636, kg, Start date: 02/05/19 0:00:00 CDT, Duration: 24 hr, Stop date: 02/05/19 18:00:00 CDT, 0 Meaghanbony galicia Albin pantoprazol e 2018-04 02:00: 00 No Notes: Tablet should not be chewed or crushed. (Same as: Protonix) Rikki Talamantes Sodium Chloride 0.9% IV 1,000 mL + M.V.I.-12 10 mL Daily + folic acid IV 1 mg Daily + thiamine IV 1 2018-04 00:52: 00 No 1,000 mL, Rate: 100 ml/hr, Infuse over: 10.1 hr, Route: IV, Dosing Weight 135.636 kg, Total Volume: 1,011.2, Start date: 02/04/19 19:52:00 CDT, Duration: 1 doses or times, Stop date: 02/05/19 5:57:00 CDT, 2.59, m2, 0 Rikki Talamantes Lorazepam 2018-04 00:52: 00 No Notes: (Same as: Ativan) Rikki Talamantes Clonidine 2018-04 00:52: 00 No Notes: (Same As: Catapres) Rikki Talamantes Ondansetron 2018-04 00:44: 00 No Notes: (Same as: Zofran) MEDICATION WASTE Product Size: 4 mg Product Wasted: ___ mg Rikki Talamantes Dextrose 50% Syringe 2018-04 00:44: 00 No 12.5 gm, 25 mL, Route: IVP, Drug Form: INJ, Dosing Weight 135.636, kg, PRN, PRN Blood Glucose Results, Start date: 02/04/19 19:44:00 CDT, Duration: 30 day, Stop date: 03/06/19 18:43:00 LONG [employer] DRIER, 0 Rikki Talamnates Glucagon 2018-04 00:44: 00 No 1 mg, Route: IM, Drug form: PDR/INJ, PRN, Dosing Weight 135.636, kg, PRN Blood Glucose Results, Start date: 02/04/19 19:44:00 CDT, Duration: 30 day, Stop date: 03/06/19 18:43:00 [employer] DRIER, 0 Rikki Talamantes Melatonin 2018-04 00:44: 00 No Notes: (Same as: Melatonin) Rikki Talamantes Acetaminoph en 2018-04 00:44: 00 No Notes: Do not exceed 4 gm/day. (Same as: Tylenol) Rikki Talamantes Medrol 4 MG Medrol 4 MG 06-08 00:00: 00 No Medrol 4 MG Medrol 4 MG Medrol 4 MG 06-08 00:00: 00 No Medrol 4 MG Medrol 4 MG Medrol 4 MG 06-08 00:00: 00 No Medrol 4 MG methylPREDN ISolone (MEDROL, WIL,) 4 mg tablets 2017-04 00:00: 00 Yes [id number] Take by mouth SEE-INSTRU CTIONS. follow package directions [facility] Kenalog (Triamcinol one) Kenalog (Triamcinol one) 2017-04 00:00: 00 No 40mg [facility] Kenalog (Triamcinol one) Kenalog (Triamcinol one) 2017-04 00:00: 00 No 40mg [facility] Kenalog (Triamcinol one) Kenalog (Triamcinol one) 2017-04 00:00: [address] [facility] sulfamethox azole-trime thoprim 800-160 mg per tablet 05-10 00:00: 00 Yes 1{tbl} Take 1 tablet by mouth every 12 (twelve) hours. [facility] mupirocin (BACTROBAN) 2 % ointment 05-10 00:00: 00 Yes Apply to area(s) 3 (three) times daily. [facility] Multivitami n Multivitami n No Multivitam in Vitamin B Complex Vitamin B Complex No Vitamin B Complex Vitamin B Complex Vitamin B Complex No Vitamin B Complex Vital Signs Vital Name Observation Time Observation Value Comments S ource Systolic blood pressure 2023-10-01 15:33:00 141 mm[Hg] [facility] acute hospital Diastolic blood pressure 2023-10-01 15:33:00 82 mm[Hg] General acute hospital Heart rate 2023-10-01 15:32:00 80 /min [facility] Body temperature 2023-10-01 15:32:00 36.78 Alicja [facility] Respiratory rate 2023-10-01 15:32:00 16 /min [facility] Body weight 2023-10-01 15:32:00 152.817 kg General acute hospital BMI 2023-10-01 15:32:00 51.23 kg/m2 General acute hospital Oxygen saturation in Arterial blood by Pulse oximetry 2023-10-01 15:32:00 95 /min [facility] acute hospital Temperature Oral (F) 2019-02-08 20:35:00 98.5 F [facility] [place] Heart Rate 2019-02-08 20:35:00 [facility] Respitory Rate 2019-02-08 20:35:00 [facility] [place] Systolic (mm Hg) 2019-02-08 20:35:00 [facility] Diastolic (mm Hg) 2019-02-08 20:35:00 [facility] Temperature Oral (F) 2019-02-08 16:49:00 98.6 F [facility] [place] Heart Rate 2019-02-08 16:49:00 [facility] [place] Respitory Rate 2019-02-08 16:49:00 [facility] Systolic (mm Hg) 2019-02-08 16:49:00 [facility] [place] Diastolic (mm Hg) 2019-02-08 16:49:00 [facility] [place] Temperature Oral (F) 2019-02-08 12:56:00 97.9 F [facility] Heart Rate 2019-02-08 12:56:00 [facility] [place] Respitory Rate 2019-02-08 12:56:00 [facility] Systolic (mm Hg) 2019-02-08 12:56:00 [facility] Diastolic (mm Hg) 2019-02-08 12:56:00 [facility] BMI Calculated 2019-02-04 20:54:00 [facility] [place] Height 2019-02-04 20:54:00 172.72 cm [facility] Weight 2019-02-04 20:54:00 [facility] [place] Procedures Procedure Date / Time Performed Performing Clinicia n Source POCT MOLECULAR STREP 2023-10-01 15:29:00 Unknown, Kimberley montenegro [facility] Encounters Start Date/Time End Date/Time Encounter Type Admission Type Attending [facility] Care Department Encounter ID Source 2023-06-08 08:06:01 Outpatient Glenn Munson STLMLC STLM [id number] [facility] 2023-01-27 15:29:00 [facility] [id number] [facility] 2019-02-06 10:01:00 Inpatient U [facility] MED [id number] [facility] 2023-10-01 10:20:00 2023-10-01 11:08:46 Outpatient R TORSTEN SEO [facility] [id number] [facility] 2023-10-01 10:20:00 2023-10-01 11:08:46 Urgent Care Torsten Seo Unknown, Attending [facility] [id number] [facility] 2023-10-01 09:40:00 2023-10-01 09:40:00 Outpatient R [facility] [id number] [facility] 2023-01-27 00:00:00 2023-01-27 00:00:00 OFFICE VISIT NEW PT LEVEL 3 STLMLC STLMLC [id number] [facility] 2023-01-27 00:00:00 2023-01-27 00:00:00 (TEL) STLMLC STLMLC [id number] [facility] 2023-01-27 00:00:00 2023-01-27 00:00:00 (TEL) STLMLC STLMLC [id number] [facility] 2020-01-23 09:38:43 2020-01-23 09:58:43 Laboratory Only Lab, Adc Fam Pob I Evelyn [facility] Office Building One [id number] [facility] 2020-01-23 09:40:00 2020-01-23 09:40:00 Outpatient R [facility] [id number] [facility] 2019-11-19 00:00:00 2019-11-19 00:00:00 Patient Secure Msg Doctor Unassigned, [place] [facility] [id number] [facility] 2019-11-18 09:00:12 2019-11-18 09:20:12 Laboratory Only Lab, [facility] Pob I Evelyn [facility] Office Building One [id number] [facility] 2019-11-18 08:40:00 2019-11-18 08:40:00 Outpatient R [facility] [id number] [facility] Results Test Description Test Time Test Comments Results Result Co mments Source [facility] [id number] 00:00:00ResultCHEM [id number] 09:28:00* Test Item Value Reference Range Interpretation Comme nts Magnesium Lvl (test code = M agnesium Lvl) 2.0 1.8-2.4 Phosphorus (test code = Phosphorus) 3.9 2.5-4.5 [id number] 09:28:00* Test Item Value Reference Range Interpretation Comme nts AGAP (test code = AGAP) 9.9 10.0-20.0 Glucose Lvl (test code = Glucose Lvl) 105 70-99 BUN (test code = BUN) 7 7-22 Creatinine Lvl (test code = Creatinine Lvl) 0.76 0.50-1.40 Sodium Lvl (test code = Sodium Lvl) 142 135-145 Potassium Lvl (test code = P otassium Lvl) 3.9 3.5-5.1 Chloride Lvl (test code = Chloride Lvl) 110 95-109 CO2 (test code = CO2) 26 24-32 Calcium Lvl (test code = Calcium Lvl) 8.8 8.5-10.5 eGFR (test code = eGFR) 123 [id number] 09:28:00* Test Item Value Reference Range Interpretation Comme nts Segs (test code = Segs) 68.2 45.0-75.0 Lymphocytes (test code = Lymphocytes) 18.7 20.0-40.0 Monocytes (test code = Monocytes) 8.4 2.0-12.0 Eosinophils (test code = Eosinophils) 4.0 <=4.0 Basophils (test code = Basophils) 0.7 <=1.0 Neutrophils # (test code = Neutrophils #) 6.5 1.5-8.1 Lymphocytes # (test code = Lymphocytes #) 1.8 1.0-5.5 Monocytes # (test code = Monocytes #) 0.8 <=0.8 Eosinophils # (test code = Eosinophils #) 0.4 <=0.5 Basophils # (test code = Basophils #) 0.1 <=0.2 WBC (test code = WBC) 9.5 3.7-10.4 RBC (test code = RBC) 4.97 4.70-6.10 Hgb (test code = Hgb) 14.2 14.0-18.0 Hct (test code = Hct) 43.1 42.0-54.0 MCV (test code = MCV) 86.6 80.0-94.0 MCH (test code = MCH) 28.5 pg 27.0-31.0 MCHC (test code = MCHC) 32.9 32.0-36.0 RDW (test code = RDW) 13.8 11.5-14.5 Platelet (test code = Platelet) 200 133-450 MPV (test code = MPV) 8.2 7.4-10.4 [facility] [id number] 08:11:00* Test Item Value Reference Range Interpretation Comme nts Phosphorus (test code = Phosphorus) 3.8 2.5-4.5 Magnesium Lvl (test code = M agnesium Lvl) 1.8 1.8-2.4 Glucose Lvl (test code = Glucose Lvl) 117 70-99 BUN (test code = BUN) 8 7-22 Creatinine Lvl (test code = Creatinine Lvl) 0.88 0.50-1.40 Sodium Lvl (test code = Sodium Lvl) 138 135-145 Potassium Lvl (test code = P otassium Lvl) 3.8 3.5-5.1 Chloride Lvl (test code = Chloride Lvl) 108 95-109 CO2 (test code = CO2) 28 24-32 AGAP (test code = AGAP) 5.8 10.0-20.0 Calcium Lvl (test code = Calcium Lvl) 8.8 8.5-10.5 B/C Ratio (test code = B/C Ratio) 9 1 6-25 Total Protein (test code = T otal Protein) 7.0 6.4-8.4 Albumin Lvl (test code = Albumin Lvl) 2.9 3.5-5.0 Globulin (test code = Globulin) 4.1 2.7-4.2 A/G Ratio (test code = A/G Ratio) 0.7 1 0.7-1.6 ALT (test code = ALT) 21 <=65 AST (test code = AST) 11 <=37 Alk Phos (test code = Alk Phos) 64 39-136 Bili Total (test code = Bili Total) 1.3 0.2-1.3 eGFR (test code = eGFR) 116 [id number] 08:11:00* Test Item Value Reference Range Interpretation Comme nts Segs (test code = Segs) 78.2 45.0-75.0 Lymphocytes (test code = Lymphocytes) 12.0 20.0-40.0 Monocytes (test code = Monocytes) 7.6 2.0-12.0 Eosinophils (test code = Eosinophils) 1.8 <=4.0 Basophils (test code = Basophils) 0.4 <=1.0 Neutrophils # (test code = Neutrophils #) 11.1 1.5-8.1 Lymphocytes # (test code = Lymphocytes #) 1.7 1.0-5.5 Monocytes # (test code = Monocytes #) 1.1 <=0.8 Eosinophils # (test code = Eosinophils #) 0.3 <=0.5 Basophils # (test code = Basophils #) 0.1 <=0.2 WBC (test code = WBC) 14.2 3.7-10.4 RBC (test code = RBC) 4.80 4.70-6.10 Hgb (test code = Hgb) 13.7 14.0-18.0 Hct (test code = Hct) 39.8 42.0-54.0 MCV (test code = MCV) 82.9 80.0-94.0 MCH (test code = MCH) 28.5 pg 27.0-31.0 MCHC (test code = MCHC) 34.4 32.0-36.0 RDW (test code = RDW) 13.8 11.5-14.5 Platelet (test code = Platelet) 187 133-450 MPV (test code = MPV) 8.3 7.4-10.4 PTT (test code = PTT) 34.0 s 22.9-35.8 PT (test code = PT) 15.1 s 12.0-14.7 INR (test code = INR) 1.21 1 0.85-1.17 [id number] 19:15:00* Test Item Value Reference Range Interpretation Comme nts Hgb (test code = Hgb) 14.6 14.0-18.0 Hct (test code = Hct) 42.2 42.0-54.0 [facility] [id number] 08:20:00* Test Item Value Reference Range Interpretation Comme nts Troponin-I (test code = Troponin-I) no gt <=0.40 [facility]annCHE[facility] [id number] 08:20:00* Test Item Value Reference Range Interpretation Comme nts Magnesium Lvl (test code = M agnesium Lvl) 1.8 1.8-2.4 Phosphorus (test code = Phosphorus) 3.4 2.5-4.5 [facility] [id number] 08:20:00* Test Item Value Reference Range Interpretation Comme nts AGAP (test code = AGAP) 12.0 10.0-20.0 Glucose Lvl (test code = Glucose Lvl) 98 70-99 BUN (test code = BUN) 10 7-22 Creatinine Lvl (test code = Creatinine Lvl) 0.87 0.50-1.40 Sodium Lvl (test code = Sodium Lvl) 141 135-145 Potassium Lvl (test code = P otassium Lvl) 4.0 3.5-5.1 Chloride Lvl (test code = Chloride Lvl) 107 95-109 CO2 (test code = CO2) 26 24-32 Calcium Lvl (test code = Calcium Lvl) 8.7 8.5-10.5 eGFR (test code = eGFR) 117 [id number] 08:20:00* Test Item Value Reference Range Interpretation Comme nts WBC (test code = WBC) 13.8 3.7-10.4 RBC (test code = RBC) 4.65 4.70-6.10 MCV (test code = MCV) 85.3 80.0-94.0 MCH (test code = MCH) 28.6 pg 27.0-31.0 MCHC (test code = MCHC) 33.5 32.0-36.0 RDW (test code = RDW) 13.9 11.5-14.5 Platelet (test code = Platelet) 200 133-450 MPV (test code = MPV) 9.1 7.4-10.4 Segs (test code = Segs) 76.3 45.0-75.0 Lymphocytes (test code = Lymphocytes) 12.2 20.0-40.0 Monocytes (test code = Monocytes) 8.7 2.0-12.0 Eosinophils (test code = Eosinophils) 2.5 <=4.0 Basophils (test code = Basophils) 0.3 <=1.0 Neutrophils # (test code = Neutrophils #) 10.5 1.5-8.1 Lymphocytes # (test code = Lymphocytes #) 1.7 1.0-5.5 Monocytes # (test code = Monocytes #) 1.2 <=0.8 Eosinophils # (test code = Eosinophils #) 0.4 <=0.5 [facility] [id number] 01:32:00* Test Item Value Reference Range Interpretation Comme nts Antibody Scrn (test code = Antibody Scrn) Negative (02/04/19 8:32 PM) ABO/Rh (test code = ABO/Rh) O POS [facility]CARD[facility] [id number] 01:32:00* Test Item Value Reference Range Interpretation Comme nts Troponin-I (test code = Troponin-I) no gt <=0.40 [facility]annCHE[facility] [id number] 01:32:00* Test Item Value Reference Range Interpretation Comme nts Lipase Lvl (test code = Lipase Lvl) 42 73-393 [facility] [id number] 01:32:00* Test Item Value Reference Range Interpretation Comme nts RBC Morph (test code = RBC Morph) Normal (02/04/19 8:32 PM) Basophils # (test code = Basophils #) 0.1 <=0.2 Large Plt (test code = Large Plt) Moderate *ABN*(02/04/19 8:32 PM) [facility], COVID 19 Antigen + Flu by SofiaPOC, COVID 19 Antigen + Flu by Reba Notes Date/Time Note Provider Source 2019-02-07 08:32:00 PROCEDURE INFORMATIO N: Exam: FL Swallowing Function with Cine or Video Exam date and time: 02/07/2019 1:45 PM Clinical history: 28 years old, male; /evaluate for achalasia; Esophageal swallow function not needed TECHNIQUE: Imaging protocol: Swallowing function, with cineradiography/ videoradiograph. Guided with fluoroscopy. Exam supervised by facility personnel. Contrast material: BARIUM; Contrast volume: 300 ml; Contrast route: ORAL; Other technique: Fluoroscopy time seconds= 198; images= 7;Radiation dose - reference air kerma: 15.3 mGy. COMPARISON: No relevant prior studies available. FINDINGS: Procedure summary: Normal swallowing with solid and liquids. No aspiration. Other findings: Findings consistent with achalasia. The esophagus is markedly dilated, tortuous, and atonic. A 'Bird's beak? appearance to the distal esophagus, consistent with achalasia, is noted. There is a fluid level in the lower esophagus. There is passage of contrast material into the stomach. The stomach is not obstructed. There is not felt to be a hiatal hernia. IMPRESSION: Findings consistent with achalasia. Martin Ruelas MD On 02/07/2019 22:13:10; [id number] [facility] 2019-02-05 14:10:00 Radiation Dose CTDIV OL = 0 (mGy): DLP = 856.96 (mGy-cm) PROCEDURE INFORMATION: Exam: CT Chest With Contrast Exam date and time: 02/05/2019 4:15 PM Clinical history: 28 years old, male; Condition or disease; Additional info: /evaluate hiatal hernia ngt placement TECHNIQUE: Imaging protocol: Computed tomography of the chest with intravenous contrast. Total DLP: 856.96 mGy-cm Radiation optimization: All CT scans at this facility use at least one of these dose optimization techniques: automated exposure control; mA and/or kV adjustment per patient size (includes targeted exams where dose is matched to clinical indication); or iterative reconstruction. Contrast material: OMNI 300; Contrast volume: 95 ml; Contrast route: IV; COMPARISON: CHEST 1VIEW DX 02/05/2019 11:24 AM FINDINGS: Lungs: Minor atelectatic changes in each lung base. Patchy reticulonodular infiltrate in the left upper lobe concerning for pneumonia. Pleural space: Unremarkable. No pneumothorax. No pleural effusion. Heart: Unremarkable. No cardiomegaly. No pericardial effusion. Mediastinum: The patient has a dilated esophagus with air-fluid level which may be secondary to achalasia with a distal sliding hiatal hernia. Nasogastric tube is coiled in the distal esophagus and does not enter the stomach. Aorta: Unremarkable. No aortic aneurysm. Lymph nodes: Non-specific upper mediastinal lymph nodes, largest measures 8 mm short axis in the AP window. Bones/joints: Unremarkable. No acute fracture. Soft tissues: Unremarkable. IMPRESSION: 1. Left upper lobe pneumonia. 2. Dilated fluid-filled esophagus suggesting achalasia. 3. Nasogastric tube placed in the distal esophagus, not entering the stomach. Enrique Chavarria MD On 02/05/2019 16:44:40; [id number] [facility] 2019-02-05 11:06:00 Findings regarding the nasogastric tube were discussed with Marva, the patient's nurse at 02/05/2019 1:27 PM CDT. The referring physician is not available at this time. It was requested that f the referring physician review this film to determine if this corresponds with the patient's known anatomy. Martin Ruelas MD On 02/05/2019 13:28:31; [id number] PROCEDURE INFORMATION: Exam: XR Chest, 1 View Exam date and time: 02/05/2019 11:24 AM Clinical history: 28 years old, male; Patient HX: Post endoscopic procedure; Additional info: /possible aspiration TECHNIQUE: Imaging protocol: XR of the chest Views: 1 view. Other technique: 1 view, frontal COMPARISON: No relevant prior studies available. IMPRESSION: 1. There is a tube which appears to represent a nasogastric tube. However, this does not take the normal course of a nasogastric tube. The tube is redundant in the upper mediastinum and extends to the right of the midline with its tip projecting just over the medial aspect of the left hemidiaphragm. This could be within a large hiatal hernia, a gastric pull through, or markedly dilated esophagus. These correlate with clinical information. If further evaluation is warranted, a chest CT scan to include the upper abdomen is suggested. 2. No active or acute process. 3. The lungs are clear. 4. There are no pleural effusions. There is no pneumothorax. 5. The heart is normal in size. 6. The regional skeleton is unremarkable. Martin Ruelas MD On 02/05/2019 12:06:07; [id number] [facility]
[2025-01-24] MEDS ORDERED: CEPHALEXIN 250 MG CAP ONE (04:19)
[2025-01-24] MEDS ORDERED: SMZ./TMP. 800/160 MG TABLET ONE (04:20)
--- NOTE | 2025-01-24 04:29 | RAD REPORT ---
EXAM: Wrist Left 3 View XR Left Wrist 3 Views HISTORY: pain COMPARISON: None TECHNIQUE: Left Wrist 3 Views FINDINGS: No fracture or dislocation. No significant sclerotic/lytic bone lesion. Joint spaces unremarkable. Soft tissues unremarkable. IMPRESSION: Unremarkable Left Wrist Radiographs. Electronically signed by: Meng Talbot MD 01/24/2025 04:16 AM CDT RP Due to temporary technical issues with the PACS/Graduway reporting system, reports are being gina d by the in-house radiologist without review as a courtesy to ensure prompt reporting the interpreting radiologist is fully responsible for the content of the report. Transcribed Date/Time: 01/24/2025 4:29 AM
--- NOTE | 2025-01-24 04:29 | RAD REPORT ---
PROCEDURE: XR Right Tibia and Fibula, 2 Views CLINICAL INDICATION: The patient is 34 years old and is Male; PAIN Bed Name: IW1 TECHNIQUE: Frontal and lateral views of the right tibia and fibula. COMPARISON: No relevant prior studies available. FINDINGS: BONES/JOINTS: Ankle mortise is maintained. In the dome is intact. No acute fracture. No subluxation or dislocation. No suspicious lytic or blastic bone lesions. SOFT TISSUES: Diffuse circumferential subcutaneous edema throughout the visualized right leg and an kle. No radiopaque foreign body. Edema within the infrapatellar fat pad. IMPRESSION: 1. Diffuse circumferential subcutaneous edema throughout the visualized right leg and ankle, as wel l as infrapatellar fat pad edema. Nonspecific. Consider further evaluation by lower extremity venous ultrasound. 2. No acute osseous abnormality. Electronically signed by: Eduardo Brownlee MD 01/24/2025 04:15 AM CDT RP Due to temporary technical issues with the [employer] reporting system, reports are being gina d by the in-house radiologist without review as a courtesy to ensure prompt reporting the interpreting radiologist is fully responsible for the content of the report. Transcribed Date/Time: 01/24/2025 4:28 AM
--- NOTE | 2025-01-24 04:33 | ER ---
Nurse's Notes [facility] Name: Josesito Lopez Age: 34 yrs Sex: Male : 1990 Arrival Date: 01/24/2025 Time: 00:34 Bed 8 Private MD: Diagnosis: Cellulitis of right lower limb;Fall on same level, unspecified;Pain in right lower leg;Pain in left wrist Presentation: 01/24 00:38 Chief complaint: Patient states: I fell last week on Monday and hit my schaefer on some kd3 steel. I had some bruising, and it has gotten better in some places but my right schaefer is still swollen and red. Coronavirus screen: Vaccine status: Patient reports receiving the 2nd dose of the covid vaccine. Ebola Screen: No symptoms or risks identified at this time. Initial Sepsis Screen: Does the patient meet any 2 criteria? No. Patient's initial sepsis screen is negative. Does the patient have a suspected source of infection? No. Patient's initial sepsis screen is negative. Risk Assessment: Do you want to hurt yourself or someone else? Patient reports no desire to harm self or others. Onset of symptoms was January 15, 2025. 00:38 Method Of Arrival: Ambulatory kd3 00:38 Acuity: KEVIN 3 kd3 Triage Assessment: 00:41 General: Appears in no apparent distress. Behavior is calm, cooperative. Pain: kd3 Complains of pain in right schaefer. Historical: - Allergies: 00:41 No Known Allergies; kd3 - Immunization history:: Adult Immunizations up to date. - Infectious Disease History:: Denies. - Social history:: Smoking status: Reported history of juuling and/or vaping. Screenin:35 [facility] ED Fall Risk Assessment (Adult) History of falling in the last 3 months, kd3 including since admission No falls in past 3 months (0 pts) Confusion or Disorientation No (0 pts) Intoxicated or Sedated No (0 pts) Impaired Gait No (0 pts) Mobility Assist Device Used No (0 pt) Altered Elimination No (0 pt) Score/Fall Risk Level 0 - 2 = Low Risk Maintained a safe environment. Abuse screen: Denies threats or abuse. Denies injuries from another. Nutritional screening: No deficits noted. Tuberculosis screening: No symptoms or risk factors identified. Assessment: 04:35 General: Appears in no apparent distress. Behavior is calm, cooperative. Neuro: Level kd3 of Consciousness is awake, alert, obeys commands, Oriented to person, place, time, situation. Cardiovascular: Capillary refill < 3 seconds Patient's skin is warm and dry. Respiratory: Airway is patent Trachea midline Respiratory effort is even, unlabored, Respiratory pattern is regular, symmetrical. Vital Signs: 00:38 Pulse 85; Resp 18; Temp 98.8(O); Pulse Ox 98% on R/A; Weight 165.56 kg; Height 5 ft. 8 kd3 in. ; Pain 4/10; 00:38 BP 152 / 81; kd3 04:35 BP 123 / 64; Pulse 48; Resp 16; Pulse Ox 98% on R/A; kd3 00:38 Body Mass Index 55.50 (165.56 kg, 172.72 cm) kd3 00:38 Pain Scale: Adult kd3 ED Course: 00:37 Patient arrived in ED. im 00:41 Triage completed. kd3 00:41 Arm band placed on right wrist. kd3 00:54 Nasim Watson DO is Attending Physician. tt7 01:57 XRAY Tib Fib RIGHT In Process Unspecified. EDMS 01:57 XRAY Wrist LEFT 3 view In Process Unspecified. EDMS 04:35 Lucía Amaro RN is Primary Nurse. kd3 04:36 No provider procedures requiring assistance completed. Patient did not have IV access kd3 during this emergency room visit. 04:45 Patient has correct armband on for positive identification. Provided Education on: kd3 antibiotics . Administered Medications: 04:22 Drug: Cephalexin PO 500 mg PO once Route: PO; at6 04:22 Drug: Trimethoprim-Sulfamethoxazole PO (160 mg-800 mg (DS) 1 tablet PO once Route: PO; at6 Medication: 04:36 VIS not applicable for this client. kd3 Outcome: 04:32 Discharge ordered by . tt7 04:36 Discharged to home ambulatory, kd3 04:36 Condition: stable 04:45 Discharge instructions given to patient, Instructed on discharge instructions, follow kd3 up and referral plans. medication usage, Demonstrated understanding of instructions, follow-up care, medications, Prescriptions given X 2, 04:45 Patient left the ED. kd3 Signatures: Dispatcher [employer] Lucía Wells RN RN kd3 Deepali Austin Travis, DO DO tt7 Lottie Watson, RN RN at6
--- NOTE | 2025-01-24 04:33 | EDPHYS ---
Physician Documentation [facility] Name: oJsesito Lopez Age: 34 yrs Sex: Male : 1990 Arrival Date: 01/24/2025 Time: 00:34 Bed 8 Private MD: ED Physician Nasim Watson HPI: 01/24 04:16 This 34 yrs old Male presents to ER via Ambulatory with complaints of Leg redness - tt7 right. 04:18 Patient reports that he fell on Monday and hit the front of his right schaefer against a tt7 piece of metal, he also braced himself with his left arm and has some swelling and pain to his left wrist, since Monday he has developed worsening pain and redness to his lower right leg, he denies fever or nausea, he denies significant past medical history. Historical: - Allergies: 00:41 No Known Allergies; kd3 - Immunization history:: Adult Immunizations up to date. - Infectious Disease History:: Denies. - Social history:: Smoking status: Reported history of juuling and/or vaping. ROS: 04:21 Constitutional: negative for fever. Cardiovascular: negative for chest pain. tt7 Respiratory: negative for shortness of breath. Abdomen/GI: negative for abdominal pain, nausea, vomiting, diarrhea. Neuro: negative for focal weakness. 04:21 MS/extremity: Positive for tenderness, 04:21 Skin: Positive for erythema, Exam: 04:21 Constitutional: Constitutional: vital signs reviewed, well appearing Head: tt7 normocephalic Respiratory: normal respiratory effort, no accessory muscle use, no audible wheezing Cardiovascular: Regular rate and rhythm, no lower extremity edema Abdomen: nondistended MSK: normal ROM of extremities, no gross deformities, mild amount of swelling and tenderness to the radial aspect of the left wrist, neurovascularly intact distally, mild amount of swelling and tenderness to the anterior aspect of the right anterior tibia , NVI distallySkin: warm, dry, erythema and warmth to the lower right leg that is tender to touch Neuro: alert and oriented, normal speech, follows commands Vital Signs: 00:38 Pulse 85; Resp 18; Temp 98.8(O); Pulse Ox 98% on R/A; Weight 165.56 kg; Height 5 ft. 8 kd3 in. ; Pain 4/10; 00:38 BP 152 / 81; kd3 04:35 BP 123 / 64; Pulse 48; Resp 16; Pulse Ox 98% on R/A; kd3 00:38 Body Mass Index 55.50 (165.56 kg, 172.72 cm) kd3 00:38 Pain Scale: Adult kd3 MDM: 00:49 Medical Screening Exam initiated tt7 04:09 Differential diagnosis: cellulitis, Right tibia fracture, left radial fracture, left tt7 ulnar fracture. Data reviewed: vital signs, nurses notes, radiologic studies. ED course: Patient had recent fall a few days ago, now developed some right lower extremity skin redness and pain, it is warm to the touch, it appears the patient likely had small skin laceration to his anterior right lower leg and this small amount of trauma led to development of cellulitis, he is neurovascularly intact distally will treat with coverage for MRSA with oral Bactrim and oral cephalexin, x-ray imaging of the right tibia/fib and left wrist ordered. 04:27 ED course: There has been a significant delay in patient care due to delayed official tt7 radiology report, I ordered plain film x-ray imaging at 00 55, it is currently 0427 and no read available at this time, I have discussed the issue with the charge nurse and radiology director to ensure that [facility] is able to access his images and will be sending the report soon. 19:08 ED course: X-ray images did not show any acute bony abnormalities, some subcutaneous tt7 edema seen on tib-fib x-ray, this clinically correlates to the patient's cellulitis, will discharge patient with course of Bactrim and Ceftin, strict return precautions discussed and need to return to the emergency department for wound check in 48 hours or sooner if no improvement, after completion of the patient's emergency department evaluation, I do not suspect a life-threatening or disabling process. Patient is medically stable and not in need of emergent medical intervention. I had a detailed discussion with the patient regarding the historical points, exam findings, emergency department evaluation, diagnostic results, and the discharge diagnosis. I instructed the patient on outpatient management of their condition. I discussed the need for outpatient follow-up with a primary care physician. I informed the patient on return precautions, including the need to return to the ED if symptoms do not improve, worsen, or if there are any questions or concerns that arise at home. The patient was discharged in stable condition. 01/24 00:54 Order name: XRAY Tib Fib RIGHT; Complete Time: 04:30 tt7 01/24 00:54 Order name: XRAY Wrist LEFT 3 view; Complete Time: 04:30 tt7 Administered Medications: 04:22 Drug: Cephalexin PO 500 mg PO once Route: PO; at6 04:22 Drug: Trimethoprim-Sulfamethoxazole PO (160 mg-800 mg (DS) 1 tablet PO once Route: PO; at6 Disposition: 19:09 Co-signature as Attending Physician, Nasim Watson DO. tt7 Disposition Summary: 01/24/25 04:32 Discharge Ordered Notes: Location: Home tt7 Problem: new tt7 Symptoms: are unchanged tt7 Condition: Stable tt7 Diagnosis - Cellulitis of right lower limb tt7 - Fall on same level, unspecified tt7 - Pain in right lower leg tt7 - Pain in left wrist tt7 Followup: tt7 - With: Emergency Department - When: As needed - Reason: Followup: tt7 - With: Private Physician - When: 48 Hours - Reason: Recheck today's complaints, Re-evaluation by your physician Discharge Instructions: - Discharge Summary Sheet tt7 - Cellulitis, Adult tt7 Forms: - Work release form kd3 - Medication Reconciliation Form tt7 - Antibiotic Education tt7 - Prescription Opioid Use tt7 - Patient Portal Instructions tt7 - Leadership Thank You Letter tt7 Prescriptions: - cefuroxime axetil 500 mg Oral tablet - take 1 tablet ORAL route every 12 hours for 5 days; 10 tablet; Refills: 0, tt7 Product Selection Permitted - Bactrim DS 800-160 mg Oral tablet - take 1 tablet ORAL route every 12 hours for 5 days; 10 tablet; Refills: 0, tt7 Product Selection Permitted Signatures: Dispatcher [employer] Lucía Wells RN RN kd3 Nasim Watson DO DO tt7 Lottie Watson RN RN at6 Corrections: (The following items were deleted from the chart) 04:25 04:21 Constitutional: Constitutional: vital signs reviewed, well appearing Head: tt7 normocephalic Eyes: no conjunctival injection, anicteric sclerae ENMT: mucus membranes moist Neck: trachea midline, no JVD Respiratory: normal respiratory effort, no accessory muscle use, no audible wheezing Cardiovascular: Regular rate and rhythm, no lower extremity edema Abdomen: nondistended MSK: normal ROM of extremities, no gross deformities, mild amount of swelling and tenderness to the radial aspect of the left wrist, neurovascularly intact distally, mild amount of swelling and tenderness to the anterior aspect of the right anterior tibia Skin: warm, dry, erythema and warmth to the lower right leg that is tender to touch Neuro: alert and oriented, normal speech, follows commands tt7 04:26 04:09 ED course: Patient had recent fall a few days ago, now developed some right lower tt7 extremity skin redness and pain, it is warm to the touch, it appears the patient likely had small skin laceration to his anterior right lower leg and this small amount of trauma led to development of cellulitis, will treat with coverage for MRSA with oral Bactrim and oral cephalexin, x-ray imaging of the right tibia/fib and left wrist ordered. tt7 19:09 04:27 ED course: There has been a significant delay in patient care due to delayed tt7 official radiology report, I ordered plain film x-ray imaging at 00 55, it is currently 0427 and no read available at this time, I have discussed the issue with the charge nurse and radiology director to ensure that [facility] is able to access her images and will be sending the report soon. tt7
[2025-01-24 07:46] VITALS: TEMP 98.8; O2SAT 98
[2025-01-24 07:47] VITALS: BP 123/64
== END 2025-01-24 04:45 | disposition home or self-care (01) ==
LOC: ER 00:34
DX: L03.115 Cellulitis of right lower limb (principal); M25.532 Pain in left wrist; W18.30XA Fall on same level, unspecified, initial encounter
CPT/HCPCS: 99283